=== PATIENT | female | born 1975 | race African-American/Black ===

== ENCOUNTER 2017-03-30 01:10 | Emergency (ER) | payer BC, OTHER ==
[~2017-03-30] VITALS: Ht 170.2 cm; Wt 102.0 kg
[~2017-03-30 01:10] MED LIST: VITAMINS
[2017-03-30 04:00] VITALS: BP 117/74
[2017-03-30] MEDS ORDERED: DIPHENHYDRAMINE 50MG CAPSULE PO ONE (04:00)
[2017-03-30] MEDS ORDERED: DEXAMETHASONE 10MG/ML 1ML VIAL IM ONE (04:00)
[2017-03-30] MEDS ORDERED: FAMOTIDINE 20MG TABLET PO ONE (04:00)
== END 2017-03-30 04:20 | disposition home or self-care (01) ==
LOC: ER 01:10
DX: H69.81 Other specified disorders of Eustachian tube, right ear (principal); R42 Dizziness and giddiness
CPT/HCPCS: 99283; J1100; Q0163

== ENCOUNTER 2017-09-09 05:02 | Emergency (ER) | payer BC, OTHER ==
[~2017-09-09] VITALS: Ht 170.2 cm; Wt 100.0 kg
[2017-09-09 06:10] VITALS: BP 148/96
== END 2017-09-09 06:49 | disposition home or self-care (01) ==
LOC: ER 05:46
DX: R07.89 Other chest pain (principal)
CPT/HCPCS: 93005; 99283

== ENCOUNTER 2017-10-17 13:33 | Emergency (ER) | payer OTHER ==
[~2017-10-17] VITALS: Ht 170.2 cm; Wt 102.0 kg
[2017-10-17] MEDS ORDERED: ACETAMINOPHEN 325MG TABLET PO ONE (16:15)
[2017-10-17] MEDS ORDERED: TRAMADOL 50MG TABLET PO ONE (16:15)
[2017-10-17 20:22] VITALS: BP 154/87
== END 2017-10-17 21:11 | disposition home or self-care (01) ==
LOC: ER 15:14
DX: R07.89 Other chest pain (principal); R03.0 Elevated blood-pressure reading, without diagnosis of hypertension
CPT/HCPCS: 36415; 71046; 81025; 84484; 93005; 99285; Z7610

== ENCOUNTER 2020-04-04 03:07 | Emergency (ER) | payer MEDICAID, OTHER ==
[~2020-04-04] VITALS: Ht 167.6 cm; Wt 109.0 kg
[2020-04-04] MEDS ORDERED: NITROGLYCERIN 0.4MG TABLET SL SL PRN (03:45)
[2020-04-04 03:59] LABS: BASOPHILS % 0.9 % (0.0-2.0); EOSINOPHILS % 2.3 % (0.0-5.0); HEMATOCRIT. 35.8 % (36.0-48.0); HEMOGLOBIN. 11.5 g/dL (12.0-16.0); LYMPHOCYTES % 42.5 % (20.0-50.0); MEAN CORPUSCULAR HEMOGLOBIN 25.8 pg (28.0-32.0); MEAN PLATELET VOLUME 7.7 fl (7.4-10.4); MONOCYTES % 13.1 % (2.0-8.0); NEUTROPHILS % 41.2 % (40.0-76.0); PLATELET 345 x1000/uL (130-400); RED BLOOD CELL COUNT 4.47 mill/uL (4.2-5.4); RED CELL DISTRIBUTION WIDTH 19.8 % (11.6-14.6)
[2020-04-04 04:07] LABS: CHLORIDE 107 mEq/L (98-107)
[2020-04-04 04:11] LABS: ETHANOL BLOOD < 10 mg/dL
[2020-04-04 04:30] VITALS: BP 122/69
== END 2020-04-04 04:59 | disposition home or self-care (01) ==
LOC: ER 03:14
DX: R07.89 Other chest pain (principal); N64.4 Mastodynia; I10 Essential (primary) hypertension
CPT/HCPCS: 36415; 71045; 80053; 80320; 81025; 83880; 84484; 85025; 93005; 99285; G0480

== ENCOUNTER 2021-05-28 18:40 | Emergency (ER) | payer MEDICAID ==
[~2021-05-28] VITALS: Ht 167.6 cm; Wt 110.0 kg
[2021-05-28] MEDS ORDERED: SODIUM CHLORIDE 0.9% 1,000 ML IV ONE (20:30)
[2021-05-28 21:36] LABS: BASOPHILS % 0.8 % (0.0-2.0); EOSINOPHILS % 0.5 % (0.0-5.0); HEMATOCRIT. 28.1 % (36.0-48.0); MEAN CORPUSCULAR HEMOGLOBIN 22.7 pg (28.0-32.0); MEAN CORPUSCULAR VOLUME 70.9 fL (81.0-99.0); MEAN PLATELET VOLUME 8.6 fl (7.4-10.4); MONOCYTES % 2.9 % (2.0-8.0); NEUTROPHILS % 68.8 % (40.0-76.0); PLATELET 383 x1000/uL (130-400); RED BLOOD CELL COUNT 3.96 mill/uL (4.2-5.4); RED CELL DISTRIBUTION WIDTH 27.8 % (11.6-14.6)
[2021-05-28 21:38] LABS: CHLORIDE 109 mEq/L (98-107)
[2021-05-28 21:52] LABS: PLATELET ESTIMATE NORMAL
[2021-05-29] VITALS: BP 132/65
== END 2021-05-29 00:25 | disposition home or self-care (01) ==
LOC: ER 18:40
DX: R53.1 Weakness (principal); E86.0 Dehydration; I10 Essential (primary) hypertension
CPT/HCPCS: 36415; 76604; 80053; 85025; 87040; 96360; 99284; J7030

== ENCOUNTER 2022-08-27 09:39 | Emergency (ER) | payer MEDICAID ==
[~2022-08-27] VITALS: Ht 168.9 cm; Wt 118.0 kg
[2022-08-27 09:50] VITALS: BP 186/84
[2022-08-27] MEDS ORDERED: LOSA100T32 PO (09:54)
[2022-08-27] MEDS ORDERED: AMLO10TA80 PO (09:54)
[2022-08-27] MEDS ORDERED: TAMO20TA4 PO (09:54)
[2022-08-27] MEDS ORDERED: ACETAMINOPHEN 325MG TABLET PO STA (10:05)
[2022-08-27 12:29] LABS: BASOPHILS % 0.7 % (0.0-2.0); HEMATOCRIT. 36.8 % (36.0-48.0); LYMPHOCYTES % 22.7 % (20.0-50.0); MEAN CORPUSCULAR HEMOGLOBIN 27.5 pg (28.0-32.0); MEAN CORPUSCULAR VOLUME 84.3 fL (81.0-99.0); MEAN PLATELET VOLUME 8.5 fl (7.4-10.4); MONOCYTES % 6.9 % (2.0-8.0); NEUTROPHILS % 68.7 % (40.0-76.0); PLATELET 284 x1000/uL (130-400); RED BLOOD CELL COUNT 4.37 mill/uL (4.2-5.4)
[2022-08-27 12:32] LABS: CHLORIDE 106 mEq/L (98-107)
[2022-08-27 12:44] LABS: HCG SCREEN NEGATIVE; INR 1.1; PROTHROMBIN TIME 11.3 sec (9.6-11.0)
[2022-08-27] MEDS ORDERED: BACL-141 MT (13:42)
[2022-08-27] MEDS ORDERED: NAPR-681 MT (13:42)
[2022-08-27 14:01] LABS: CLARITY URINE CLEAR (CLEAR); COLOR URINE YELLOW (YELLOW); KETONES URINE NEGATIVE (NEGATIVE); LEUKOCYTE ESTERASE URINE NEGATIVE (NEGATIVE); NITRITE URINE NEGATIVE (NEGATIVE); OCCULT BLOOD URINE NEGATIVE (NEGATIVE); PH URINE 5.5 (4.5-8.0); PROTEIN URINE NEGATIVE (NEGATIVE); SPECIFIC GRAVITY URINE 1.014 (1.005-1.030); UROBILINOGEN URINE 0.2 E.U./dL (0.2-1.0)
[2022-08-27 14:20] LABS: *AMPHETAMINES SCREEN URINE NEGATIVE (NEGATIVE); *BARBITURATES SCREEN URINE NEGATIVE (NEGATIVE); *BENZODIAZEPINES SCREEN URINE NEGATIVE (NEGATIVE); *COCAINE SCREEN URINE NEGATIVE (NEGATIVE); METHADONE URINE SCREEN NEGATIVE (NEGATIVE); OPIATES URINE SCREEN NEGATIVE (NEGATIVE); PHENCYCLIDINE URINE SCREEN NEGATIVE (NEGATIVE)
[2022-08-27 14:38] LABS: CANNABINOID URINE SCREEN PRESUMTIVE POSITIVE (NEGATIVE)
== END 2022-08-27 13:51 | disposition home or self-care (01) ==
LOC: ER 09:39
DX: R10.9 Unspecified abdominal pain (principal); I10 Essential (primary) hypertension; Z13.9 Encounter for screening, unspecified; Z90.10 Acquired absence of unspecified breast and nipple; Z98.890 Other specified postprocedural states
CPT/HCPCS: 36415; 71045; 76700; 80053; 80305; 81003; 81025; 84703; 85025; 99285

== ENCOUNTER 2024-05-27 12:22 | Emergency (ER) | payer MEDICAID ==
[~2024-05-27] VITALS: Ht 167.6 cm; Wt 118.8 kg
[~2024-05-27 12:22] MED LIST changes: +AMLO10TA80 PO; +BACL-141 MT; +LOSA100T33 PO; +NAPR-681 MT; +TAMO20TA4 PO
[2024-05-27 12:25] VITALS: O2SAT 98
[2024-05-27 15:36] VITALS: BP 116/89; PULSE 96; RESP 18; TEMP 36.89184; O2SAT 98
== END 2024-05-27 16:33 | disposition home or self-care (01) ==
LOC: ER 12:22
DX: N63.10 Unspecified lump in the right breast, unspecified quadrant (principal); N64.4 Mastodynia; I10 Essential (primary) hypertension; Z98.890 Other specified postprocedural states; Z79.899 Other long term (current) drug therapy
CPT/HCPCS: 99281